=== PATIENT | female | born 1985 | race Caucasian/White ===

== ENCOUNTER 2019-08-20 21:50 | Emergency (ER) | payer MEDICAID ==
[~2019-08-20] VITALS: Ht 160 cm; Wt 90.9 kg
[~2019-08-20 21:50] MED LIST: DIPH25CA83 PO; FLUT16SP2 BOTHNARES; GUAI120015 PO; NITR100C6 PO; PSEU120T55 PO
[2019-08-20 22:25] LABS: URINE HCG NEGATIVE (NEG)
[2019-08-20 22:43] LABS: BASOPHILS # (AUTO) 0.1 X10'3 (0-0.2); EOSINOPHILS % (AUTO) 0.5 % (0-6); HEMATOCRIT 42.1 % (35.0-45.0); HEMOGLOBIN 14.2 g/dl (12.0-16.0); LYMPHOCYTES # (AUTO) 2.1 X10'3 (1.1-4.8); LYMPHOCYTES % (AUTO) 34.7 % (21-51); MEAN CORPUSCULAR HEMOGLOBIN 29.6 PG (27.0-31.0); MEAN CORPUSCULAR HGB CONC 33.8 g/dL (33.0-36.5); MEAN CORPUSCULAR VOLUME 87.6 FL (78-98); MEAN PLATELET VOLUME 7.6 FL (7.4-10.4); MONOCYTES # (AUTO) 0.3 X10'3 (0-0.9); MONOCYTES % (AUTO) 5.6 % (2-12); NEUTROPHILS # (AUTO) 3.6 X10'3 (1.8-7.7); NEUTROPHILS % (AUTO) 58.2 % (42-75); PLATELET COUNT 376 X10'3 (140-440); RED BLOOD COUNT 4.81 X10'6 (4.20-5.60); RED CELL DISTRIBUTION WIDTH 13.5 % (11.5-14.5); WHITE BLOOD COUNT 6.2 X10'3 (4.5-11.0)
[2019-08-20 23:00] LABS: ALANINE AMINOTRANSFERASE 18 U/L (12-78); ALBUMIN 3.7 G/DL (3.4-5.0); ALKALINE PHOSPHATASE 119 IU/L (46-116); ANION GAP 9 (8-16); ASPARTATE AMINO TRANSFERASE 16 U/L (10-37); BILIRUBIN,TOTAL 0.3 MG/DL (0.1-1.0); BLOOD UREA NITROGEN 11 MG/DL (7-18); BUN/CREATININE RATIO 13.9 (6.6-38.0); CALCIUM 9.1 MG/DL (8.5-10.1); CHLORIDE 103 MMOL/L (99-107); CREATININE 0.79 MG/DL (0.40-0.90); GLUCOSE 90 MG/DL (70-104); LIPASE 119 U/L (73-393); POTASSIUM 3.9 MMOL/L (3.5-5.1); SODIUM 136 MMOL/L (135-145); TOTAL PROTEIN 7.4 G/DL (6.4-8.2); eGFR 82 ML/MIN
[2019-08-20 23:03] LABS: CLARITY,URINE CLEAR (Clear); COLOR,URINE STRAW (Yellow); UA COLLECTION TYPE CLN CATCH MIDSTREAM
[2019-08-20 23:04] LABS: GLUCOSE, URINE NEGATIVE (Neg); KETONES,URINE NEGATIVE (Neg); NITRITES, URINE NEGATIVE (Neg); OCCULT BLOOD,URINE SMALL (Neg); PROTEIN,URINE Negative (Neg)
[2019-08-20 23:05] LABS: LEUKOCYTE ESTERASE ,URINE NEGATIVE (Neg); UROBILINOGEN,URINE 0.2 E.U/dL (0.2-1.0)
[2019-08-20 23:07] LABS: BACTERIA,URINE NONE SEEN /HPF (Neg); RBC,URINE 0-2 /HPF (0-2); SQUAMOUS EPITHELIAL CELL,UR FEW /LPF (FEW); WBC,URINE 0-4 /HPF (0-4)
[2019-08-20 23:41] VITALS: BP 118/76
== END 2019-08-20 23:44 | disposition home or self-care (01) ==
LOC: ER 21:51
DX: R10.9 Unspecified abdominal pain (principal); E78.00 Pure hypercholesterolemia, unspecified; J45.909 Unspecified asthma, uncomplicated; K21.9 Gastro-esophageal reflux disease without esophagitis; E11.9 Type 2 diabetes mellitus without complications; E03.9 Hypothyroidism, unspecified; M19.90 Unspecified osteoarthritis, unspecified site; G89.29 Other chronic pain; F41.9 Anxiety disorder, unspecified; F31.9 Bipolar disorder, unspecified; Z91.030 Bee allergy status; Z88.0 Allergy status to penicillin; Z88.2 Allergy status to sulfonamides; Z88.6 Allergy status to analgesic agent; Z79.899 Other long term (current) drug therapy
CPT/HCPCS: 36415; 74176; 80053; 81001; 81025; 83690; 85025; 99284

== ENCOUNTER 2019-10-13 19:41 | Emergency (ER) | payer MEDICAID ==
[~2019-10-13] VITALS: Ht 160 cm; Wt 103.3 kg
[2019-10-13 19:47] VITALS: BP 125/89
[2019-10-13] MEDS ORDERED: dexamethasone sod phosphate 10mg/ml inj PO STA (20:23)
[2019-10-13] MEDS ORDERED: diphenhydrAMINE 25mg capsule PO ONE (20:25)
== END 2019-10-13 20:40 | disposition home or self-care (01) ==
LOC: ER 19:42
DX: L53.8 Other specified erythematous conditions (principal); T78.40XA Allergy, unspecified, initial encounter; E78.00 Pure hypercholesterolemia, unspecified; J45.909 Unspecified asthma, uncomplicated; K21.9 Gastro-esophageal reflux disease without esophagitis; E11.9 Type 2 diabetes mellitus without complications; E05.90 Thyrotoxicosis, unspecified without thyrotoxic crisis or storm; M19.90 Unspecified osteoarthritis, unspecified site; G89.29 Other chronic pain; Z88.8 Allergy status to other drugs, medicaments and biological substances; Z79.899 Other long term (current) drug therapy; Y92.89 Other specified places as the place of occurrence of the external cause
CPT/HCPCS: 99283; J1100; Q0163

== ENCOUNTER 2023-07-07 15:29 | Emergency (ER) | payer MEDICAID ==
[~2023-07-07] VITALS: Ht 160 cm; Wt 103.9 kg
[2023-07-07 15:39] VITALS: TEMP 98.3
[2023-07-07 16:00] LABS: BILIRUBIN,URINE NEGATIVE (Neg); CLARITY,URINE SLIGHTLY CLOUDY (Clear); COLOR,URINE YELLOW (Yellow); GLUCOSE, URINE NEGATIVE (Neg); KETONES,URINE NEGATIVE (Neg); LEUKOCYTE ESTERASE ,URINE SMALL (Neg); NITRITES, URINE NEGATIVE (Neg); OCCULT BLOOD,URINE MODERATE (Neg); PROTEIN,URINE NEGATIVE (Neg); UROBILINOGEN,URINE 0.2 E.U/dL (0.2-1.0)
[2023-07-07 16:02] LABS: URINE HCG NEGATIVE (NEG)
[2023-07-07 16:06] LABS: UA COLLECTION TYPE CLN CATCH MIDSTREAM
[2023-07-07 16:10] LABS: MUCUS STRANDS FEW /LPF (Neg); SQUAMOUS EPITHELIAL CELL,UR MANY /LPF (FEW)
[2023-07-07 16:11] LABS: BACTERIA,URINE 1+ /HPF (Neg); RBC,URINE 50-100 /HPF (0-2); WBC,URINE 30-50 /HPF (0-4)
[2023-07-07 16:12] LABS: WBC CLUMPS,URINE MODERATE /HPF (NEGATIVE)
[2023-07-07 16:13] LABS: BASOPHILS % (AUTO) 0.5 % (0-1); EOSINOPHILS # (AUTO) 0.1 X10'3 (0-0.9); EOSINOPHILS % (AUTO) 1.5 % (0-6); HEMOGLOBIN 13.1 g/dl (12.0-16.0); LYMPHOCYTES # (AUTO) 1.3 X10'3 (1.1-4.8); LYMPHOCYTES % (AUTO) 30.3 % (21-51); MEAN CORPUSCULAR HEMOGLOBIN 28.4 PG (27.0-31.0); MEAN CORPUSCULAR HGB CONC 32.7 g/dL (33.0-36.5); MEAN CORPUSCULAR VOLUME 86.8 FL (78-98); MEAN PLATELET VOLUME 7.3 FL (7.4-10.4); MONOCYTES # (AUTO) 0.4 X10'3 (0-0.9); MONOCYTES % (AUTO) 8.3 % (2-12); NEUTROPHILS # (AUTO) 2.6 X10'3 (1.8-7.7); NEUTROPHILS % (AUTO) 59.4 % (42-75); PLATELET COUNT 354 X10'3 (140-440); RED BLOOD COUNT 4.61 X10'6 (4.20-5.60); RED CELL DISTRIBUTION WIDTH 14.3 % (11.5-14.5); WHITE BLOOD COUNT 4.4 X10'3 (4.5-11.0)
[2023-07-07 16:26] LABS: ALANINE AMINOTRANSFERASE 17 U/L (12-78); ALBUMIN 3.5 G/DL (3.4-5.0); ALBUMIN/GLOBULIN RATIO 0.9 (1.1-1.5); ALKALINE PHOSPHATASE 111 IU/L (46-116); ANION GAP 10 (8-16); ASPARTATE AMINO TRANSFERASE 22 U/L (10-37); BILIRUBIN,TOTAL 0.5 MG/DL (0.1-1.0); BLOOD UREA NITROGEN 12 MG/DL (7-18); CALCIUM 8.7 MG/DL (8.5-10.1); CHLORIDE 104 MMOL/L (99-107); CREATININE 0.75 MG/DL (0.40-0.90); GLUCOSE 91 MG/DL (70-104); LIPASE 18 U/L (16-77); POTASSIUM 3.8 MMOL/L (3.5-5.1); SODIUM 138 MMOL/L (135-145); TOTAL CARBON DIOXIDE 23.7 MMOL/L (24-32); TOTAL PROTEIN 7.3 G/DL (6.4-8.2); eCRCL 82 ML/MIN; eGFR 86 ML/MIN
[2023-07-07 16:29] VITALS: BP 108/70; PULSE 100; RESP 18; O2SAT 98
[2023-07-07 17:58] LABS: BILIRUBIN,URINE NEGATIVE (Neg); COLOR,URINE YELLOW (Yellow); GLUCOSE, URINE NEGATIVE (Neg); KETONES,URINE NEGATIVE (Neg); LEUKOCYTE ESTERASE ,URINE SMALL (Neg); NITRITES, URINE NEGATIVE (Neg); OCCULT BLOOD,URINE MODERATE (Neg); PROTEIN,URINE NEGATIVE (Neg); UROBILINOGEN,URINE 0.2 E.U/dL (0.2-1.0)
[2023-07-07 18:24] LABS: CLARITY,URINE SLIGHTLY CLOUDY (Clear); UA COLLECTION TYPE CLN CATCH MIDSTREAM
[2023-07-07 18:27] LABS: WBC,URINE 20-30 /HPF (0-4)
[2023-07-07 18:28] LABS: BACTERIA,URINE 1+ /HPF (Neg); SQUAMOUS EPITHELIAL CELL,UR FEW /LPF (FEW)
[2023-07-07] MEDS ORDERED: cephalexin 500mg capsule PO ONE (18:30)
[2023-07-07] MEDS ORDERED: CEPH250T PO (18:31)
== END 2023-07-07 18:41 | disposition home or self-care (01) ==
LOC: ER 15:30
DX: A08.4 Viral intestinal infection, unspecified (principal); Z20.822 Contact with and (suspected) exposure to COVID-19; R11.2 Nausea with vomiting, unspecified; N39.0 Urinary tract infection, site not specified; E78.00 Pure hypercholesterolemia, unspecified; J45.909 Unspecified asthma, uncomplicated; E11.9 Type 2 diabetes mellitus without complications; M19.90 Unspecified osteoarthritis, unspecified site; G89.29 Other chronic pain; E03.9 Hypothyroidism, unspecified; Z88.8 Allergy status to other drugs, medicaments and biological substances; Z88.0 Allergy status to penicillin; Z88.1 Allergy status to other antibiotic agents; Z88.2 Allergy status to sulfonamides; Z88.5 Allergy status to narcotic agent; Z79.2 Long term (current) use of antibiotics; Z79.899 Other long term (current) drug therapy
CPT/HCPCS: 36415; 80053; 81001; 81025; 83690; 85025; 87088; 87811; 99283

== ENCOUNTER 2023-07-22 07:44 | Outpatient (CLI) | payer MEDICAID ==
[~2023-07-22] VITALS: Ht 160 cm; Wt 103.0 kg
[2023-07-22] MEDS ORDERED: albuterol 2.5 MG/3 ML nebule NEB ONE (08:20)
[2023-07-22 08:36] VITALS: PULSE 71; RESP 14; O2SAT 98
== END 2023-07-22 23:59 | disposition home or self-care (01) ==
LOC: RT 07:44
PROVIDERS: ATTEND Physician Assistant
DX: R94.2 Abnormal results of pulmonary function studies (principal); J45.909 Unspecified asthma, uncomplicated
CPT/HCPCS: 94060; 94760; J7030

== ENCOUNTER 2023-07-28 07:53 | Outpatient (CLI) | payer MEDICAID | END 2023-07-28 23:59 | disposition home or self-care (01) | LOC: RAD 07:53 | PROVIDERS: ATTEND Physician Assistant | DX: G40.909 Epilepsy, unspecified, not intractable, without status epilepticus (principal); E03.9 Hypothyroidism, unspecified; R94.01 Abnormal electroencephalogram [EEG] | CPT/HCPCS: 36415; 84443; 95816 ==

== ENCOUNTER 2023-08-10 14:47 | Emergency (ER) | payer MEDICAID ==
[~2023-08-10] VITALS: Ht 160 cm; Wt 105.6 kg
[2023-08-10 16:02] VITALS: BP 126/82; PULSE 76; TEMP 98.2; O2SAT 98
[2023-08-10 17:40] VITALS: RESP 17
[2023-08-10] MEDS ORDERED: BENZ-38 PO (17:55)
== END 2023-08-10 18:23 | disposition home or self-care (01) ==
LOC: ER 14:48
DX: J06.9 Acute upper respiratory infection, unspecified (principal); Z20.822 Contact with and (suspected) exposure to COVID-19
CPT/HCPCS: 36415; 71045; 87502; 87503; 87811; 99284

== ENCOUNTER 2023-10-10 09:27 | Emergency (ER) | payer MEDICAID ==
[~2023-10-10] VITALS: Ht 160 cm; Wt 96.3 kg
[2023-10-10 09:32] VITALS: BP 126/80; PULSE 82; RESP 16; O2SAT 100
[2023-10-10 10:37] LABS: URINE HCG NEGATIVE (NEG)
[2023-10-10 11:43] VITALS: TEMP 98
== END 2023-10-10 11:45 | disposition home or self-care (01) ==
LOC: ER 09:28
DX: M25.552 Pain in left hip (principal); J02.9 Acute pharyngitis, unspecified
CPT/HCPCS: 73502; 81025; 99284

== ENCOUNTER 2023-11-10 10:47 | Outpatient (CLI) | payer MEDICAID ==
[2023-11-10 12:00] LABS: BASOPHILS # (AUTO) 0.1 X10'3 (0-0.2); BASOPHILS % (AUTO) 1.3 % (0-1); EOSINOPHILS # (AUTO) 0.1 X10'3 (0-0.9); EOSINOPHILS % (AUTO) 1.2 % (0-6); HEMATOCRIT 41.1 % (35.0-45.0); HEMOGLOBIN 13.6 g/dl (12.0-16.0); LYMPHOCYTES % (AUTO) 35.3 % (21-51); MEAN CORPUSCULAR HEMOGLOBIN 28.4 PG (27.0-31.0); MEAN CORPUSCULAR VOLUME 85.9 FL (78-98); MEAN PLATELET VOLUME 7.5 FL (7.4-10.4); MONOCYTES # (AUTO) 0.3 X10'3 (0-0.9); NEUTROPHILS # (AUTO) 3.3 X10'3 (1.8-7.7); NEUTROPHILS % (AUTO) 57.2 % (42-75); PLATELET COUNT 343 X10'3 (140-440); RED BLOOD COUNT 4.78 X10'6 (4.20-5.60); RED CELL DISTRIBUTION WIDTH 16.6 % (11.5-14.5); WHITE BLOOD COUNT 5.7 X10'3 (4.5-11.0)
[2023-11-10 12:27] LABS: ALANINE AMINOTRANSFERASE 14 U/L (12-78); ALBUMIN 3.3 G/DL (3.4-5.0); ALBUMIN/GLOBULIN RATIO 0.7 (1.1-1.5); ALKALINE PHOSPHATASE 110 IU/L (46-116); ANION GAP 6 (8-16); ASPARTATE AMINO TRANSFERASE 11 U/L (10-37); BILIRUBIN,TOTAL 0.3 MG/DL (0.1-1.0); BLOOD UREA NITROGEN 7 MG/DL (7-18); BUN/CREATININE RATIO 10.4 (10.0-20.0); CHLORIDE 106 MMOL/L (99-107); CHOL/HDL RATIO 3.8 (0.00-4.99); CHOLESTEROL 237 MG/DL (0-200); CREATININE 0.67 MG/DL (0.40-0.90); GLUCOSE 80 MG/DL (70-104); HDL CHOLESTEROL 63 MG/DL (35-60); LDL CHOLESTEROL 164 MG/DL (50-100); POTASSIUM 3.6 MMOL/L (3.5-5.1); SODIUM 140 MMOL/L (135-145); THYROID STIMULATING HORMONE 4.03 ulU/ml (0.34-4.50); TOTAL CARBON DIOXIDE 28.3 MMOL/L (24-32); TRIGLYCERIDES 81 MG/DL (20-135); eGFR > 90 ML/MIN
[2023-11-12 14:52] LABS: VITAMIN D, 25-HYDROXY 32.6 ng/mL (30.0-100.0)
== END 2023-11-10 23:59 | disposition home or self-care (01) ==
LOC: LAB 10:47
PROVIDERS: ATTEND Family Medicine
DX: E03.9 Hypothyroidism, unspecified (principal); E16.2 Hypoglycemia, unspecified; E55.9 Vitamin D deficiency, unspecified; F41.9 Anxiety disorder, unspecified; F79 Unspecified intellectual disabilities
CPT/HCPCS: 36415; 80053; 80061; 82306; 83036; 84443; 85025; 86803; 87389

== ENCOUNTER 2024-01-18 16:36 | Emergency (ER) | payer MEDICAID ==
[~2024-01-18] VITALS: Ht 160 cm; Wt 92.0 kg
[2024-01-18 16:56] VITALS: BP 114/73; PULSE 111; TEMP 97.2; O2SAT 97
[2024-01-18 17:13] LABS: EOSINOPHILS # (AUTO) 0.1 X10'3 (0-0.9); MEAN CORPUSCULAR HGB CONC 33.9 g/dL (33.0-36.5); MEAN PLATELET VOLUME 7.8 FL (7.4-10.4); NEUTROPHILS # (AUTO) 4.3 X10'3 (1.8-7.7); WHITE BLOOD COUNT 7.3 X10'3 (4.5-11.0)
[2024-01-18 17:14] LABS: BASOPHILS # (AUTO) 0.1 X10'3 (0-0.2); BASOPHILS % (AUTO) 0.8 % (0-1); EOSINOPHILS % (AUTO) 0.8 % (0-6); HEMATOCRIT 43.3 % (35.0-45.0); HEMOGLOBIN 14.7 g/dl (12.0-16.0); LYMPHOCYTES # (AUTO) 2.6 X10'3 (1.1-4.8); LYMPHOCYTES % (AUTO) 34.8 % (21-51); MEAN CORPUSCULAR HEMOGLOBIN 29.3 PG (27.0-31.0); MEAN CORPUSCULAR VOLUME 86.4 FL (78-98); MONOCYTES # (AUTO) 0.4 X10'3 (0-0.9); MONOCYTES % (AUTO) 5.1 % (2-12); NEUTROPHILS % (AUTO) 58.5 % (42-75); PLATELET COUNT 402 X10'3 (140-440); RED BLOOD COUNT 5.01 X10'6 (4.20-5.60); RED CELL DISTRIBUTION WIDTH 14.6 % (11.5-14.5)
[2024-01-18 17:19] VITALS: RESP 20
[2024-01-18 17:19] LABS: ALANINE AMINOTRANSFERASE 25 U/L (12-78); ALBUMIN 3.6 G/DL (3.4-5.0); ALBUMIN/GLOBULIN RATIO 0.9 (1.1-1.5); ALKALINE PHOSPHATASE 118 IU/L (46-116); ANION GAP 10 (8-16); ASPARTATE AMINO TRANSFERASE 16 U/L (10-37); BILIRUBIN,TOTAL 0.5 MG/DL (0.1-1.0); BLOOD UREA NITROGEN 9 MG/DL (7-18); BUN/CREATININE RATIO 9.8 (10.0-20.0); CALCIUM 9.2 MG/DL (8.5-10.1); CHLORIDE 105 MMOL/L (99-107); CREATININE 0.92 MG/DL (0.40-0.90); GLUCOSE 106 MG/DL (70-104); POTASSIUM 3.4 MMOL/L (3.5-5.1); SODIUM 138 MMOL/L (135-145); TOTAL CARBON DIOXIDE 22.6 MMOL/L (24-32); TOTAL PROTEIN 7.8 G/DL (6.4-8.2); eCRCL 67 ML/MIN; eGFR 67 ML/MIN
[2024-01-18 17:28] LABS: PRO BRAIN NATRIURETIC PEPTIDE 209 PG/ML (0-125)
[2024-01-18] MEDS: LORazepam 1 MG tablet PO ONE (19:01)
== END 2024-01-18 19:20 | disposition home or self-care (01) ==
LOC: ER 16:37
DX: F41.9 Anxiety disorder, unspecified (principal); G89.29 Other chronic pain; E78.00 Pure hypercholesterolemia, unspecified; J45.909 Unspecified asthma, uncomplicated; K21.9 Gastro-esophageal reflux disease without esophagitis; E11.9 Type 2 diabetes mellitus without complications; M19.90 Unspecified osteoarthritis, unspecified site; Z88.8 Allergy status to other drugs, medicaments and biological substances; Z91.030 Bee allergy status; Z88.0 Allergy status to penicillin; Z88.2 Allergy status to sulfonamides; Z79.899 Other long term (current) drug therapy
CPT/HCPCS: 36415; 80053; 83880; 84484; 85025; 93005; 99284

== ENCOUNTER 2024-02-09 21:03 | Emergency (ER) | payer MEDICAID ==
[~2024-02-09] VITALS: Ht 160 cm; Wt 95.0 kg
[2024-02-09] MEDS ORDERED: famotidine/PF IV inj 20 MG in normal saline 100ml IV soln 100 ML IV ONE (22:20)
[2024-02-09] MEDS: epiNEPHrine 1 mg/ml inj IM STA (22:24)
[2024-02-09] MEDS: diphenhydrAMINE 50 mg/ml inj IV ONE (22:24)
[2024-02-09] MEDS: dexamethasone sod phosphate 10mg/ml inj IV STA (22:24)
[2024-02-09] MEDS: famotidine/PF 10 mg/ml inj IV ONE (22:35)
[2024-02-09] MEDS ORDERED: PRED20TA PO (23:35)
[2024-02-10 00:14] VITALS: BP 102/62; PULSE 87; RESP 18; TEMP 98.1; O2SAT 96
== END 2024-02-10 00:16 | disposition home or self-care (01) ==
LOC: ER 21:03
DX: T63.441A Toxic effect of venom of bees, accidental (unintentional), initial encounter (principal); Y92.89 Other specified places as the place of occurrence of the external cause; Z79.899 Other long term (current) drug therapy; E78.00 Pure hypercholesterolemia, unspecified; J45.909 Unspecified asthma, uncomplicated; K21.9 Gastro-esophageal reflux disease without esophagitis; E11.9 Type 2 diabetes mellitus without complications; E05.90 Thyrotoxicosis, unspecified without thyrotoxic crisis or storm; M19.90 Unspecified osteoarthritis, unspecified site; G89.29 Other chronic pain; F41.9 Anxiety disorder, unspecified; F32.A Depression, unspecified; Z88.8 Allergy status to other drugs, medicaments and biological substances; Z91.030 Bee allergy status
CPT/HCPCS: 93005; 96372; 96374; 96375; 99284; J0171; J1100; J1200; J3490; A4615

== ENCOUNTER 2024-02-14 08:44 | Emergency (ER) | payer MEDICAID ==
[~2024-02-14] VITALS: Ht 160 cm; Wt 90.0 kg
[~2024-02-14 08:44] MED LIST changes: +PRED20TA PO
[2024-02-14 08:46] VITALS: BP 120/78; PULSE 74; TEMP 97.8; O2SAT 97
[2024-02-14 08:58] VITALS: RESP 16
[2024-02-14] MEDS: acetaminophen 325mg tablet PO ONE (09:43)
== END 2024-02-14 11:30 | disposition home or self-care (01) ==
LOC: ER 08:44
DX: S80.01XA Contusion of right knee, initial encounter (principal); S30.0XXA Contusion of lower back and pelvis, initial encounter; E78.00 Pure hypercholesterolemia, unspecified; J45.909 Unspecified asthma, uncomplicated; K21.9 Gastro-esophageal reflux disease without esophagitis; E11.9 Type 2 diabetes mellitus without complications; E05.90 Thyrotoxicosis, unspecified without thyrotoxic crisis or storm; M19.90 Unspecified osteoarthritis, unspecified site; G89.29 Other chronic pain; F41.9 Anxiety disorder, unspecified; F32.A Depression, unspecified; Z88.0 Allergy status to penicillin; Z88.2 Allergy status to sulfonamides; Z88.8 Allergy status to other drugs, medicaments and biological substances; Z91.030 Bee allergy status; Z91.012 Allergy to eggs; Z79.899 Other long term (current) drug therapy; Z79.52 Long term (current) use of systemic steroids; W18.39XA Other fall on same level, initial encounter; Y93.89 Activity, other specified; Y92.89 Other specified places as the place of occurrence of the external cause; Y99.8 Other external cause status
CPT/HCPCS: 72220; 73564; 99284; A6449

== ENCOUNTER 2024-02-24 17:49 | Emergency (ER) | payer MEDICAID ==
[~2024-02-24] VITALS: Ht 160 cm; Wt 93.2 kg
[2024-02-24] MEDS: diphenhydrAMINE 25mg capsule PO ONE (18:26)
[2024-02-24] MEDS: proCHLORperazine 10 MG/2 ml inj IM ONE (18:26)
[2024-02-24] MEDS: DEXAMETHASONE 6 MG TABLET PO SCH (18:26)
[2024-02-24] MEDS ORDERED: RIME75TA PO (18:27)
[2024-02-24 19:24] VITALS: BP 105/70; PULSE 89; RESP 14; TEMP 98.2; O2SAT 98
[2024-03-02] MEDS ORDERED: HYDR-3965 PO (01:23)
== END 2024-02-24 19:25 | disposition home or self-care (01) ==
LOC: ER 17:50
DX: G43.909 Migraine, unspecified, not intractable, without status migrainosus (principal); E78.00 Pure hypercholesterolemia, unspecified; J45.909 Unspecified asthma, uncomplicated; K21.9 Gastro-esophageal reflux disease without esophagitis; E11.9 Type 2 diabetes mellitus without complications; G89.29 Other chronic pain; F41.9 Anxiety disorder, unspecified; F32.A Depression, unspecified; E03.9 Hypothyroidism, unspecified; Z88.8 Allergy status to other drugs, medicaments and biological substances; Z91.030 Bee allergy status; Z79.899 Other long term (current) drug therapy; Z79.52 Long term (current) use of systemic steroids
CPT/HCPCS: 96372; 99283; J0780; Q0163; J8540

== ENCOUNTER 2024-03-06 18:27 | Emergency (ER) | payer MEDICAID ==
[~2024-03-06] VITALS: Ht 160 cm; Wt 86.4 kg
[~2024-03-06 18:27] MED LIST changes: +HYDR-3965 PO; +RIME75TA PO
[2024-03-06 18:43] LABS: BASOPHILS # (AUTO) 0.1 X10'3 (0-0.2); BASOPHILS % (AUTO) 1.3 % (0-1); EOSINOPHILS # (AUTO) 0.1 X10'3 (0-0.9); EOSINOPHILS % (AUTO) 2.3 % (0-6); HEMATOCRIT 37.7 % (35.0-45.0); HEMOGLOBIN 12.7 g/dl (12.0-16.0); LYMPHOCYTES # (AUTO) 2.2 X10'3 (1.1-4.8); LYMPHOCYTES % (AUTO) 34.3 % (21-51); MEAN CORPUSCULAR HEMOGLOBIN 29.4 PG (27.0-31.0); MEAN CORPUSCULAR HGB CONC 33.8 g/dL (33.0-36.5); MEAN CORPUSCULAR VOLUME 87.2 FL (78-98); MEAN PLATELET VOLUME 7.6 FL (7.4-10.4); MONOCYTES # (AUTO) 0.4 X10'3 (0-0.9); MONOCYTES % (AUTO) 6.3 % (2-12); NEUTROPHILS # (AUTO) 3.5 X10'3 (1.8-7.7); NEUTROPHILS % (AUTO) 55.8 % (42-75); PLATELET COUNT 331 X10'3 (140-440); RED BLOOD COUNT 4.33 X10'6 (4.20-5.60); RED CELL DISTRIBUTION WIDTH 14.7 % (11.5-14.5); WHITE BLOOD COUNT 6.3 X10'3 (4.5-11.0)
[2024-03-06 18:58] LABS: ALANINE AMINOTRANSFERASE 16 U/L (12-78); ALBUMIN 3.2 G/DL (3.4-5.0); ALBUMIN/GLOBULIN RATIO 0.9 (1.1-1.5); ALKALINE PHOSPHATASE 110 IU/L (46-116); ANION GAP 5 (8-16); ASPARTATE AMINO TRANSFERASE 10 U/L (10-37); BILIRUBIN,TOTAL 0.2 MG/DL (0.1-1.0); BLOOD UREA NITROGEN 7 MG/DL (7-18); BUN/CREATININE RATIO 8.1 (10.0-20.0); CALCIUM 8.7 MG/DL (8.5-10.1); CHLORIDE 106 MMOL/L (99-107); CREATININE 0.86 MG/DL (0.40-0.90); GLUCOSE 100 MG/DL (70-104); POTASSIUM 3.5 MMOL/L (3.5-5.1); SODIUM 137 MMOL/L (135-145); TOTAL CARBON DIOXIDE 26.1 MMOL/L (24-32); TOTAL PROTEIN 6.6 G/DL (6.4-8.2); eCRCL 71 ML/MIN; eGFR 73 ML/MIN
[2024-03-06 19:07] LABS: PRO BRAIN NATRIURETIC PEPTIDE 156 PG/ML (0-125)
[2024-03-06 20:12] VITALS: BP 112/77; PULSE 82; RESP 16; TEMP 98.3; O2SAT 98
== END 2024-03-06 20:14 | disposition home or self-care (01) ==
LOC: ER 18:28
DX: R07.89 Other chest pain (principal); E78.00 Pure hypercholesterolemia, unspecified; J45.909 Unspecified asthma, uncomplicated; K21.9 Gastro-esophageal reflux disease without esophagitis; E11.9 Type 2 diabetes mellitus without complications; M19.90 Unspecified osteoarthritis, unspecified site; F41.9 Anxiety disorder, unspecified; F32.A Depression, unspecified; Z88.8 Allergy status to other drugs, medicaments and biological substances; Z91.030 Bee allergy status; Z88.6 Allergy status to analgesic agent; Z79.899 Other long term (current) drug therapy
CPT/HCPCS: 36415; 71045; 80053; 83880; 84484; 85025; 93005; 99285

== ENCOUNTER 2024-03-20 18:08 | Emergency (ER) | payer MEDICAID ==
[~2024-03-20] VITALS: Ht 160 cm; Wt 94.5 kg
[~2024-03-20 18:08] MED LIST changes: -PRED20TA PO
[2024-03-20 18:20] VITALS: TEMP 97.5
[2024-03-20 19:24] LABS: BASOPHILS # (AUTO) 0.1 X10'3 (0-0.2); BASOPHILS % (AUTO) 0.9 % (0-1); EOSINOPHILS % (AUTO) 0.6 % (0-6); HEMOGLOBIN 13.7 g/dl (12.0-16.0); LYMPHOCYTES # (AUTO) 2.3 X10'3 (1.1-4.8); LYMPHOCYTES % (AUTO) 28.3 % (21-51); MEAN CORPUSCULAR HEMOGLOBIN 29.8 PG (27.0-31.0); MEAN CORPUSCULAR HGB CONC 34.2 g/dL (33.0-36.5); MEAN CORPUSCULAR VOLUME 87.2 FL (78-98); MEAN PLATELET VOLUME 7.9 FL (7.4-10.4); MONOCYTES # (AUTO) 0.6 X10'3 (0-0.9); MONOCYTES % (AUTO) 7.5 % (2-12); NEUTROPHILS # (AUTO) 5.1 X10'3 (1.8-7.7); NEUTROPHILS % (AUTO) 62.7 % (42-75); PLATELET COUNT 344 X10'3 (140-440); RED BLOOD COUNT 4.59 X10'6 (4.20-5.60); RED CELL DISTRIBUTION WIDTH 14.4 % (11.5-14.5); WHITE BLOOD COUNT 8.2 X10'3 (4.5-11.0)
[2024-03-20 19:28] LABS: BILIRUBIN,URINE NEGATIVE (Neg); CLARITY,URINE SLIGHTLY CLOUDY (Clear); COLOR,URINE YELLOW (Yellow); GLUCOSE, URINE NEGATIVE (Neg); KETONES,URINE NEGATIVE (Neg); LEUKOCYTE ESTERASE ,URINE MODERATE (Neg); NITRITES, URINE NEGATIVE (Neg); OCCULT BLOOD,URINE MODERATE (Neg); PROTEIN,URINE NEGATIVE (Neg); UROBILINOGEN,URINE 0.2 E.U/dL (0.2-1.0)
[2024-03-20 19:38] LABS: APTT 28 SECONDS (22-32)
[2024-03-20 19:40] LABS: ALANINE AMINOTRANSFERASE 16 U/L (12-78); ALBUMIN 3.2 G/DL (3.4-5.0); ALBUMIN/GLOBULIN RATIO 0.9 (1.1-1.5); ALKALINE PHOSPHATASE 112 IU/L (46-116); ANION GAP 9 (8-16); ASPARTATE AMINO TRANSFERASE 31 U/L (10-37); BILIRUBIN,TOTAL 0.3 MG/DL (0.1-1.0); BLOOD UREA NITROGEN 6 MG/DL (7-18); BUN/CREATININE RATIO 6.9 (10.0-20.0); CALCIUM 8.8 MG/DL (8.5-10.1); CHLORIDE 105 MMOL/L (99-107); CREATININE 0.87 MG/DL (0.40-0.90); GLUCOSE 93 MG/DL (70-104); SODIUM 140 MMOL/L (135-145); TOTAL CARBON DIOXIDE 26.2 MMOL/L (24-32); TOTAL PROTEIN 6.9 G/DL (6.4-8.2); eCRCL 70 ML/MIN; eGFR 72 ML/MIN
[2024-03-20 19:42] LABS: UA COLLECTION TYPE CLN CATCH MIDSTREAM
[2024-03-20 19:44] LABS: HCG SERUM QL NEGATIVE
[2024-03-20] MEDS ORDERED: NITR100C6 PO (19:52)
[2024-03-20] MEDS ORDERED: POTA20PA40 PO (19:52)
[2024-03-20 19:54] LABS: BACTERIA,URINE 3+ /HPF (Neg); MUCUS STRANDS NONE SEEN /LPF (Neg); SQUAMOUS EPITHELIAL CELL,UR MODERATE /LPF (FEW); WBC CLUMPS,URINE FEW /HPF (NEGATIVE); WBC,URINE 20-30 /HPF (0-4)
[2024-03-20] MEDS: potassium bicarbonate/cit acid 25mEq tablet.effervescent PO STA (20:27)
[2024-03-20 20:30] VITALS: BP 104/72; PULSE 89; RESP 16; O2SAT 96
== END 2024-03-20 20:31 | disposition home or self-care (01) ==
LOC: ER 18:09
DX: E87.6 Hypokalemia (principal); Z20.822 Contact with and (suspected) exposure to COVID-19; N39.0 Urinary tract infection, site not specified; E11.649 Type 2 diabetes mellitus with hypoglycemia without coma; R79.1 Abnormal coagulation profile; E78.00 Pure hypercholesterolemia, unspecified; J45.909 Unspecified asthma, uncomplicated; K21.9 Gastro-esophageal reflux disease without esophagitis; E03.9 Hypothyroidism, unspecified; F41.9 Anxiety disorder, unspecified; F32.A Depression, unspecified; Z91.09 Other allergy status, other than to drugs and biological substances; Z91.030 Bee allergy status; Z88.6 Allergy status to analgesic agent; Z79.899 Other long term (current) drug therapy
CPT/HCPCS: 36415; 71045; 80053; 81001; 82948; 84703; 85025; 85610; 85730; 87088; 87811; 99284

== ENCOUNTER 2024-06-27 07:38 | Emergency (ER) | payer MEDICAID ==
[~2024-06-27] VITALS: Ht 160 cm; Wt 105.0 kg
[~2024-06-27 07:38] MED LIST changes: -HYDR-3965 PO; +POTA20PA40 PO
[2024-06-27 07:39] VITALS: TEMP 97.9
[2024-06-27] MEDS: dexamethasone 4mg tablet PO ONE (08:23)
[2024-06-27] MEDS: ipratropium/albuterol 3ml nebule NEB ONE (08:26)
[2024-06-27 08:27] VITALS: PULSE 102; PULSE 97; RESP 22; O2SAT 95
[2024-06-27 08:29] VITALS: BP 115/73; PULSE 97; RESP 18; O2SAT 98
== END 2024-06-27 08:50 | disposition home or self-care (01) ==
LOC: ER 07:39
DX: R06.02 Shortness of breath (principal); J02.9 Acute pharyngitis, unspecified; E78.00 Pure hypercholesterolemia, unspecified; E11.9 Type 2 diabetes mellitus without complications; F31.9 Bipolar disorder, unspecified; E03.9 Hypothyroidism, unspecified; J45.909 Unspecified asthma, uncomplicated; K21.9 Gastro-esophageal reflux disease without esophagitis; M19.90 Unspecified osteoarthritis, unspecified site; R13.10 Dysphagia, unspecified; Z88.8 Allergy status to other drugs, medicaments and biological substances; Z91.030 Bee allergy status; Z88.6 Allergy status to analgesic agent; Z88.1 Allergy status to other antibiotic agents; Z88.0 Allergy status to penicillin; Z88.2 Allergy status to sulfonamides
CPT/HCPCS: 93005; 94640; 94760; 99283

== ENCOUNTER 2024-06-27 22:16 | Emergency (ER) | payer MEDICAID ==
[~2024-06-27] VITALS: Ht 160 cm; Wt 89.1 kg
[2024-06-27 22:49] LABS: BASOPHILS % (AUTO) 0.2 % (0-1); EOSINOPHILS % (AUTO) 0 % (0-6); HEMATOCRIT 38.1 % (35.0-45.0); HEMOGLOBIN 12.7 g/dl (12.0-16.0); LYMPHOCYTES # (AUTO) 0.7 X10'3 (1.1-4.8); LYMPHOCYTES % (AUTO) 14.4 % (21-51); MEAN CORPUSCULAR HEMOGLOBIN 28.7 PG (27.0-31.0); MEAN CORPUSCULAR HGB CONC 33.4 g/dL (33.0-36.5); MEAN CORPUSCULAR VOLUME 85.9 FL (78-98); MEAN PLATELET VOLUME 7.2 FL (7.4-10.4); MONOCYTES # (AUTO) 0.1 X10'3 (0-0.9); MONOCYTES % (AUTO) 2.2 % (2-12); NEUTROPHILS % (AUTO) 83.2 % (42-75); PLATELET COUNT 401 X10'3 (140-440); RED BLOOD COUNT 4.44 X10'6 (4.20-5.60); RED CELL DISTRIBUTION WIDTH 13.9 % (11.5-14.5); WHITE BLOOD COUNT 4.8 X10'3 (4.5-11.0)
[2024-06-27 23:04] LABS: ALANINE AMINOTRANSFERASE 15 U/L (12-78); ALBUMIN 3.3 G/DL (3.4-5.0); ALBUMIN/GLOBULIN RATIO 0.8 (1.1-1.5); ALKALINE PHOSPHATASE 113 IU/L (46-116); ANION GAP 11 (8-16); ASPARTATE AMINO TRANSFERASE 14 U/L (10-37); BILIRUBIN,TOTAL 0.2 MG/DL (0.1-1.0); BLOOD UREA NITROGEN 6 MG/DL (7-18); BUN/CREATININE RATIO 6.8 (10.0-20.0); CALCIUM 8.9 MG/DL (8.5-10.1); CHLORIDE 107 MMOL/L (99-107); CREATININE 0.88 MG/DL (0.40-0.90); GLUCOSE 143 MG/DL (70-104); POTASSIUM 3.2 MMOL/L (3.5-5.1); SODIUM 143 MMOL/L (135-145); TOTAL CARBON DIOXIDE 25.1 MMOL/L (24-32); TOTAL PROTEIN 7.3 G/DL (6.4-8.2); eCRCL 70 ML/MIN; eGFR 71 ML/MIN
[2024-06-27 23:12] LABS: PRO BRAIN NATRIURETIC PEPTIDE 686 PG/ML (0-125)
[2024-06-28] MEDS: potassium bicarbonate/cit acid 25mEq tablet.effervescent PO STA (02:19)
[2024-06-28 02:21] VITALS: BP 108/70; PULSE 81; RESP 18; TEMP 97.6; O2SAT 95
== END 2024-06-28 02:35 | disposition home or self-care (01) ==
LOC: ER 22:17
DX: Z00.8 Encounter for other general examination (principal); E87.6 Hypokalemia; E11.9 Type 2 diabetes mellitus without complications; J45.909 Unspecified asthma, uncomplicated; K21.9 Gastro-esophageal reflux disease without esophagitis; E78.00 Pure hypercholesterolemia, unspecified; E03.9 Hypothyroidism, unspecified; F31.9 Bipolar disorder, unspecified; Z88.0 Allergy status to penicillin; Z88.2 Allergy status to sulfonamides; Z88.6 Allergy status to analgesic agent; Z91.030 Bee allergy status; Z88.8 Allergy status to other drugs, medicaments and biological substances
CPT/HCPCS: 36415; 71045; 80053; 83880; 84484; 85025; 93005; 99285